=== PATIENT | female | born 1980 | race Two or more races ===

== ENCOUNTER 2019-11-07 22:19 | Emergency (ER) | payer OTHER ==
[~2019-11-07] VITALS: Ht 165.1 cm; Wt 77.1 kg
[2019-11-07] MEDS ORDERED: HIERRO (22:47)
== END 2019-11-08 06:29 | disposition home or self-care (01) ==
LOC: ER 22:19
DX: R07.89 Other chest pain (principal); F41.8 Other specified anxiety disorders

== ENCOUNTER 2020-05-26 00:25 | Emergency (ER) | payer OTHER ==
[~2020-05-26] VITALS: Ht 165.1 cm; Wt 77.1 kg
[~2020-05-26 00:25] MED LIST: HIERRO
[2020-05-26] MEDS ORDERED: NIX59 M1 TOP (01:28)
[2020-05-26] MEDS ORDERED: ALLEGRA ALLERG180 MG PO (01:36)
== END 2020-05-26 01:51 | disposition home or self-care (01) ==
LOC: ER 00:25
DX: R21 Rash and other nonspecific skin eruption (principal)